=== PATIENT | female | born 1945 | race Caucasian/White ===

== ENCOUNTER 2019-05-22 12:42 | Inpatient (IN) ==
[2019-05-22] MEDS: QUEtiapine Fumarate 25 MG TABLET PO SCH (20:16)
[2019-05-22] MEDS: carvediloL 6.25 MG TABLET PO SCH (20:16)
[2019-05-22] MEDS: Apixaban 5 MG TABLET PO SCH (20:16)
[2019-05-22] MEDS: Magnesium Oxide 400 MG TABLET PO SCH (20:16)
[2019-05-22] MEDS: Nystatin POWDER 30 GM BOTTLE TP SCH (21:47)
[2019-05-22] MEDS: Budesonide/Formoterol 80/4.5 1 PUFF INH IH SCH (22:53)
[2019-05-23] MEDS ORDERED: Furosemide 40 MG TABLET PO SCH (09:00)
[2019-05-23] MEDS ORDERED: Tiotropium 18 MCG inhalation IH SCH (09:00)
[2019-05-23 09:33] LABS: Basophils % 0.2 %; Eosinophils # 0.1 K/mcL (0.0-0.6); Eosinophils % 0.4 %; Hematocrit 27.8 % (35.3-44.9); Hemoglobin 8.2 g/dL (11.5-15.4); Lymphocytes # 1.7 K/mcL (0.6-4.6); Lymphocytes % 10.1 %; Mean Corpuscular HGB Conc 29.5 g/dL (31.6-35.5); Mean Corpuscular Hemoglobin 25.6 pg (28.0-33.3); Mean Corpuscular Volume 86.9 fL (83.0-100.0); Mean Platelet Volume 11.6 fL (9.4-12.4); Monocytes # 1.1 K/mcL (0.0-1.3); Monocytes % 6.9 %; Neutrophils # 12.9 K/mcL (1.6-8.9); Nucleated Red Blood Cells 0.5 /100 WBC (0); Platelet Count 163 K/mcL (140-400); Red Cell Distribution Width 17.6 % (11.5-14.5); Segmented Neutrophils % 78.4 %; White Blood Count 16.5 K/mcL (4.3-11.1)
[2019-05-23 09:53] LABS: BUN/Creatinine Ratio 40 (6-26); Blood Urea Nitrogen 25 mg/dL (8-23); Calcium 8.4 mg/dL (8.6-10.3); Carbon Dioxide 31 mEq/L (23-29); Chloride 101 mEq/L (98-107); Glucose 79 mg/dL (70-105); Osmolality,Calculated 293 (280-300); Potassium 3.5 mEq/L (3.5-5.1); Sodium 140 mEq/L (136-145); eGFR For African Americans > 60 (> 60); eGFR For Non-African Americans > 60 (> 60)
[2019-05-23] MEDS: Budesonide/Formoterol 80/4.5 1 PUFF INH IH SCH ×2 (09:59→23:10)
[2019-05-23] MEDS: Tiotropium 18 MCG inhalation IH SCH (10:01)
[2019-05-23] MEDS: Aspirin 81 MG TAB.CHEW PO SCH (10:14)
[2019-05-23] MEDS: amLODIPine 5 MG TABLET PO SCH (10:14)
[2019-05-23] MEDS: Magnesium Oxide 400 MG TABLET PO SCH ×2 (10:15→19:38)
[2019-05-23] MEDS: Acetaminophen 325 MG TABLET PO PRN ×2 (10:15→19:38)
[2019-05-23] MEDS: Cholecalciferol (D-3) 1,000 UNIT (25MCG) TABLET PO SCH (10:15)
[2019-05-23] MEDS: Vitamin E 200 UNIT (90MG) CAPSULE PO SCH (10:16)
[2019-05-23] MEDS: *HR* Amiodarone 200 MG TABLET PO SCH (10:16)
[2019-05-23] MEDS: Loratadine 10 MG TABLET PO SCH (10:16)
[2019-05-23] MEDS: Multivit/Ca/Min/Fe/FA 1 TAB TABLET PO SCH (10:16)
[2019-05-23] MEDS: FLUoxetine 20 MG CAPSULE PO SCH (10:16)
[2019-05-23] MEDS: carvediloL 6.25 MG TABLET PO SCH ×3 (10:17→17:09)
[2019-05-23] MEDS: Nystatin POWDER 30 GM BOTTLE TP SCH ×2 (10:17→19:39)
[2019-05-23] MEDS: Apixaban 5 MG TABLET PO SCH ×2 (10:17→19:39)
[2019-05-23] MEDS: Furosemide 40 MG TABLET PO SCH (17:09)
[2019-05-23 19:15] LABS: Bilirubin,Urine Negative (Negative); Blood,Urine Trace-intact (Negative); Clarity,Urine Clear (Clear); Color,Urine Yellow (Yellow); Glucose,Urine (UA) Normal (Normal); Ketones,Urine Negative (Negative); Leukocyte Esterase,Urine Trace (Negative); Nitrite,Urine Negative (Negative); Protein,Urine Negative (Neg-Trace); Urobilinogen,Urine Normal (Normal)
[2019-05-23 19:25] LABS: Bacteria,Urine Few per hpf (None-Few); Hyaline Casts,Urine Few per lpf (None-Few); RBC,Urine 0-3 per hpf (0-3); Squamous Epithelial Cell,Urine Few per lpf (None-Few); WBC,Urine 0-3 per hpf (0-3)
[2019-05-23] MEDS: QUEtiapine Fumarate 25 MG TABLET PO SCH (19:38)
[2019-05-24 07:57] LABS: Hematocrit 26.5 % (35.3-44.9); Hemoglobin 7.9 g/dL (11.5-15.4); Mean Corpuscular HGB Conc 29.8 g/dL (31.6-35.5); Mean Corpuscular Hemoglobin 25.5 pg (28.0-33.3); Mean Corpuscular Volume 85.5 fL (83.0-100.0); Mean Platelet Volume 11.3 fL (9.4-12.4); Platelet Count 164 K/mcL (140-400); Red Cell Distribution Width 17.9 % (11.5-14.5); White Blood Count 16.7 K/mcL (4.3-11.1)
[2019-05-24] MEDS: Tiotropium 18 MCG inhalation IH SCH (09:21)
[2019-05-24] MEDS: Budesonide/Formoterol 80/4.5 1 PUFF INH IH SCH ×2 (09:21→21:20)
[2019-05-24] MEDS: Aspirin 81 MG TAB.CHEW PO SCH (10:23)
[2019-05-24] MEDS: Furosemide 40 MG TABLET PO SCH ×2 (10:23→15:45)
[2019-05-24] MEDS: Vitamin E 200 UNIT (90MG) CAPSULE PO SCH (10:23)
[2019-05-24] MEDS: *HR* Amiodarone 200 MG TABLET PO SCH (10:23)
[2019-05-24] MEDS: Cholecalciferol (D-3) 1,000 UNIT (25MCG) TABLET PO SCH (10:23)
[2019-05-24] MEDS: Magnesium Oxide 400 MG TABLET PO SCH ×2 (10:23→19:33)
[2019-05-24] MEDS: Multivit/Ca/Min/Fe/FA 1 TAB TABLET PO SCH (10:23)
[2019-05-24] MEDS: Loratadine 10 MG TABLET PO SCH (10:23)
[2019-05-24] MEDS: amLODIPine 5 MG TABLET PO SCH (10:24)
[2019-05-24] MEDS: carvediloL 6.25 MG TABLET PO SCH ×2 (10:24→15:45)
[2019-05-24] MEDS: Nystatin POWDER 30 GM BOTTLE TP SCH ×2 (10:24→19:33)
[2019-05-24] MEDS: FLUoxetine 20 MG CAPSULE PO SCH (10:24)
[2019-05-24] MEDS: Apixaban 5 MG TABLET PO SCH (10:25)
[2019-05-24] MEDS: Acetaminophen 325 MG TABLET PO PRN (15:44)
[2019-05-24] MEDS: predniSONE 20 MG TABLET PO SCH ×2 (15:45→19:33)
[2019-05-24] MEDS: QUEtiapine Fumarate 25 MG TABLET PO SCH (19:33)
[2019-05-25] MEDS: Vitamin E 200 UNIT (90MG) CAPSULE PO SCH (10:41)
[2019-05-25] MEDS: Aspirin 81 MG TAB.CHEW PO SCH (10:41)
[2019-05-25] MEDS: Magnesium Oxide 400 MG TABLET PO SCH ×2 (10:41→20:23)
[2019-05-25] MEDS: *HR* Amiodarone 200 MG TABLET PO SCH (10:41)
[2019-05-25] MEDS: FLUoxetine 20 MG CAPSULE PO SCH (10:41)
[2019-05-25] MEDS: Loratadine 10 MG TABLET PO SCH (10:41)
[2019-05-25] MEDS: Multivit/Ca/Min/Fe/FA 1 TAB TABLET PO SCH (10:41)
[2019-05-25] MEDS: Furosemide 40 MG TABLET PO SCH ×2 (10:42→17:36)
[2019-05-25] MEDS: amLODIPine 5 MG TABLET PO SCH (10:42)
[2019-05-25] MEDS: predniSONE 20 MG TABLET PO SCH ×3 (10:42→17:37)
[2019-05-25] MEDS: Acetaminophen 325 MG TABLET PO PRN ×2 (10:42→20:23)
[2019-05-25] MEDS: carvediloL 6.25 MG TABLET PO SCH ×2 (10:43→17:36)
[2019-05-25] MEDS: Nystatin POWDER 30 GM BOTTLE TP SCH ×2 (10:43→20:23)
[2019-05-25] MEDS: Cholecalciferol (D-3) 1,000 UNIT (25MCG) TABLET PO SCH (10:44)
[2019-05-25] MEDS: Budesonide/Formoterol 80/4.5 1 PUFF INH IH SCH ×2 (10:44→23:14)
[2019-05-25] MEDS: Tiotropium 18 MCG inhalation IH SCH (10:45)
[2019-05-25] MEDS: QUEtiapine Fumarate 25 MG TABLET PO SCH (20:23)
[2019-05-26] MEDS: Budesonide/Formoterol 80/4.5 1 PUFF INH IH SCH ×2 (08:36→23:06)
[2019-05-26] MEDS: Tiotropium 18 MCG inhalation IH SCH (08:36)
[2019-05-26] MEDS: Multivit/Ca/Min/Fe/FA 1 TAB TABLET PO SCH (08:58)
[2019-05-26] MEDS: carvediloL 6.25 MG TABLET PO SCH ×2 (08:59→16:42)
[2019-05-26] MEDS: amLODIPine 5 MG TABLET PO SCH (08:59)
[2019-05-26] MEDS: predniSONE 20 MG TABLET PO SCH ×2 (08:59→16:42)
[2019-05-26] MEDS: Vitamin E 200 UNIT (90MG) CAPSULE PO SCH (08:59)
[2019-05-26] MEDS: Magnesium Oxide 400 MG TABLET PO SCH ×2 (08:59→21:18)
[2019-05-26] MEDS: Aspirin 81 MG TAB.CHEW PO SCH (09:00)
[2019-05-26] MEDS: Furosemide 40 MG TABLET PO SCH ×2 (09:00→16:42)
[2019-05-26] MEDS: *HR* Amiodarone 200 MG TABLET PO SCH (09:00)
[2019-05-26] MEDS: FLUoxetine 20 MG CAPSULE PO SCH (09:00)
[2019-05-26] MEDS: Cholecalciferol (D-3) 1,000 UNIT (25MCG) TABLET PO SCH (09:01)
[2019-05-26] MEDS: Nystatin POWDER 30 GM BOTTLE TP SCH ×2 (09:01→21:18)
[2019-05-26] MEDS: Loratadine 10 MG TABLET PO SCH (09:06)
[2019-05-26] MEDS: QUEtiapine Fumarate 25 MG TABLET PO SCH (21:18)
[2019-05-27] MEDS: Tiotropium 18 MCG inhalation IH SCH (09:04)
[2019-05-27] MEDS: Budesonide/Formoterol 80/4.5 1 PUFF INH IH SCH ×2 (09:04→21:56)
[2019-05-27] MEDS: Vitamin E 200 UNIT (90MG) CAPSULE PO SCH (09:14)
[2019-05-27] MEDS: Magnesium Oxide 400 MG TABLET PO SCH ×2 (09:15→21:35)
[2019-05-27] MEDS: amLODIPine 5 MG TABLET PO SCH (09:15)
[2019-05-27] MEDS: Acetaminophen 325 MG TABLET PO PRN (09:15)
[2019-05-27] MEDS: *HR* Amiodarone 200 MG TABLET PO SCH (09:15)
[2019-05-27] MEDS: Furosemide 40 MG TABLET PO SCH ×2 (09:15→17:28)
[2019-05-27] MEDS: Multivit/Ca/Min/Fe/FA 1 TAB TABLET PO SCH (09:15)
[2019-05-27] MEDS: predniSONE 20 MG TABLET PO SCH ×2 (09:16→17:29)
[2019-05-27] MEDS: Aspirin 81 MG TAB.CHEW PO SCH (09:16)
[2019-05-27] MEDS: Loratadine 10 MG TABLET PO SCH (09:17)
[2019-05-27] MEDS: carvediloL 6.25 MG TABLET PO SCH ×2 (09:17→17:29)
[2019-05-27] MEDS: FLUoxetine 20 MG CAPSULE PO SCH (09:17)
[2019-05-27] MEDS: Cholecalciferol (D-3) 1,000 UNIT (25MCG) TABLET PO SCH (09:17)
[2019-05-27] MEDS: Nystatin POWDER 30 GM BOTTLE TP SCH ×2 (09:18→21:35)
[2019-05-27] MEDS ORDERED: Bisacodyl 10 MG RECTAL SUPPOSITORY RC ONE (14:05)
[2019-05-27] MEDS: Sennosides/Docusate Sodium TABLET PO SCH ×2 (17:28→21:37)
[2019-05-27] MEDS: QUEtiapine Fumarate 25 MG TABLET PO SCH (21:35)
[2019-05-28 08:26] LABS: Hematocrit 29.8 % (35.3-44.9); Hemoglobin 8.5 g/dL (11.5-15.4); Mean Corpuscular HGB Conc 28.5 g/dL (31.6-35.5); Mean Corpuscular Volume 91.1 fL (83.0-100.0); Mean Platelet Volume 10.2 fL (9.4-12.4); Platelet Count 121 K/mcL (140-400); Red Blood Count 3.27 M/mcL (3.82-4.97); Red Cell Distribution Width 20.4 % (11.5-14.5); White Blood Count 12.5 K/mcL (4.3-11.1)
[2019-05-28 08:42] LABS: BUN/Creatinine Ratio 38 (6-26); Blood Urea Nitrogen 21 mg/dL (8-23); Calcium 8.5 mg/dL (8.6-10.3); Carbon Dioxide 29 mEq/L (23-29); Chloride 100 mEq/L (98-107); Glucose 84 mg/dL (70-105); Osmolality,Calculated 288 (280-300); Potassium 3.9 mEq/L (3.5-5.1); Sodium 138 mEq/L (136-145); eGFR For African Americans > 60 (> 60); eGFR For Non-African Americans > 60 (> 60)
[2019-05-28] MEDS: Multivit/Ca/Min/Fe/FA 1 TAB TABLET PO SCH (09:33)
[2019-05-28] MEDS: predniSONE 20 MG TABLET PO SCH ×2 (09:33→17:24)
[2019-05-28] MEDS: carvediloL 6.25 MG TABLET PO SCH ×2 (09:33→17:24)
[2019-05-28] MEDS: Magnesium Oxide 400 MG TABLET PO SCH ×2 (09:33→20:20)
[2019-05-28] MEDS: Vitamin E 200 UNIT (90MG) CAPSULE PO SCH (09:33)
[2019-05-28] MEDS: Sennosides/Docusate Sodium TABLET PO SCH ×2 (09:33→20:20)
[2019-05-28] MEDS: amLODIPine 5 MG TABLET PO SCH (09:33)
[2019-05-28] MEDS: FLUoxetine 20 MG CAPSULE PO SCH (09:34)
[2019-05-28] MEDS: *HR* Amiodarone 200 MG TABLET PO SCH (09:34)
[2019-05-28] MEDS: Aspirin 81 MG TAB.CHEW PO SCH (09:34)
[2019-05-28] MEDS: Cholecalciferol (D-3) 1,000 UNIT (25MCG) TABLET PO SCH (09:34)
[2019-05-28] MEDS: Furosemide 40 MG TABLET PO SCH ×2 (09:34→17:24)
[2019-05-28] MEDS: Loratadine 10 MG TABLET PO SCH (09:35)
[2019-05-28] MEDS: Tiotropium 18 MCG inhalation IH SCH (11:59)
[2019-05-28] MEDS: Budesonide/Formoterol 80/4.5 1 PUFF INH IH SCH ×2 (12:00→22:41)
[2019-05-28] MEDS: Nystatin POWDER 30 GM BOTTLE TP SCH ×2 (12:36→20:21)
[2019-05-28] MEDS: QUEtiapine Fumarate 25 MG TABLET PO SCH (20:20)
[2019-05-29] MEDS: carvediloL 6.25 MG TABLET PO SCH ×2 (08:19→16:38)
[2019-05-29] MEDS: predniSONE 20 MG TABLET PO SCH ×2 (08:19→16:39)
[2019-05-29] MEDS: Vitamin E 200 UNIT (90MG) CAPSULE PO SCH (08:19)
[2019-05-29] MEDS: Multivit/Ca/Min/Fe/FA 1 TAB TABLET PO SCH (08:19)
[2019-05-29] MEDS: Furosemide 40 MG TABLET PO SCH ×2 (08:19→16:38)
[2019-05-29] MEDS: Aspirin 81 MG TAB.CHEW PO SCH (08:20)
[2019-05-29] MEDS: Magnesium Oxide 400 MG TABLET PO SCH ×2 (08:20→20:09)
[2019-05-29] MEDS: Sennosides/Docusate Sodium TABLET PO SCH ×2 (08:20→20:09)
[2019-05-29] MEDS: FLUoxetine 20 MG CAPSULE PO SCH (08:20)
[2019-05-29] MEDS: Loratadine 10 MG TABLET PO SCH (08:20)
[2019-05-29] MEDS: *HR* Amiodarone 200 MG TABLET PO SCH (08:20)
[2019-05-29] MEDS: amLODIPine 5 MG TABLET PO SCH (08:20)
[2019-05-29] MEDS: Nystatin POWDER 30 GM BOTTLE TP SCH ×2 (08:21→20:09)
[2019-05-29] MEDS: Cholecalciferol (D-3) 1,000 UNIT (25MCG) TABLET PO SCH (08:21)
[2019-05-29] MEDS: Tiotropium 18 MCG inhalation IH SCH (11:45)
[2019-05-29] MEDS: Budesonide/Formoterol 80/4.5 1 PUFF INH IH SCH ×2 (11:46→22:26)
[2019-05-29] MEDS: QUEtiapine Fumarate 25 MG TABLET PO SCH (20:09)
[2019-05-30] MEDS: Acetaminophen 325 MG TABLET PO PRN ×2 (04:54→21:48)
[2019-05-30] MEDS: Cholecalciferol (D-3) 1,000 UNIT (25MCG) TABLET PO SCH (08:22)
[2019-05-30] MEDS: amLODIPine 5 MG TABLET PO SCH (08:22)
[2019-05-30] MEDS: Furosemide 40 MG TABLET PO SCH ×2 (08:24→17:46)
[2019-05-30] MEDS: Vitamin E 200 UNIT (90MG) CAPSULE PO SCH (08:24)
[2019-05-30] MEDS: Sennosides/Docusate Sodium TABLET PO SCH ×2 (08:24→21:48)
[2019-05-30] MEDS: Loratadine 10 MG TABLET PO SCH (08:24)
[2019-05-30] MEDS: Multivit/Ca/Min/Fe/FA 1 TAB TABLET PO SCH (08:24)
[2019-05-30] MEDS: Aspirin 81 MG TAB.CHEW PO SCH (08:24)
[2019-05-30] MEDS: FLUoxetine 20 MG CAPSULE PO SCH (08:25)
[2019-05-30] MEDS: *HR* Amiodarone 200 MG TABLET PO SCH (08:25)
[2019-05-30] MEDS: Magnesium Oxide 400 MG TABLET PO SCH ×2 (08:25→21:48)
[2019-05-30] MEDS: predniSONE 20 MG TABLET PO SCH ×2 (08:25→17:46)
[2019-05-30] MEDS: carvediloL 6.25 MG TABLET PO SCH ×2 (08:25→17:46)
[2019-05-30] MEDS: Budesonide/Formoterol 80/4.5 1 PUFF INH IH SCH ×2 (09:01→22:41)
[2019-05-30] MEDS: Tiotropium 18 MCG inhalation IH SCH (09:01)
[2019-05-30] MEDS: Nystatin POWDER 30 GM BOTTLE TP SCH ×2 (10:07→21:48)
[2019-05-30] MEDS: QUEtiapine Fumarate 25 MG TABLET PO SCH (21:48)
[2019-05-30 22:46] LABS: Bilirubin,Urine Negative (Negative); Blood,Urine Negative (Negative); Glucose,Urine (UA) Normal (Normal); Ketones,Urine Negative (Negative); Leukocyte Esterase,Urine Trace (Negative); Nitrite,Urine Negative (Negative); Protein,Urine Negative (Neg-Trace); Specific Gravity,Urine 1.025 (1.010-1.025); Urobilinogen,Urine Normal (Normal)
[2019-05-30 22:47] LABS: Clarity,Urine Slightly Cloudy (Clear); Color,Urine Straw (Yellow)
[2019-05-30 22:59] LABS: Bacteria,Urine Few per hpf (None-Few); RBC,Urine 0-3 per hpf (0-3); Squamous Epithelial Cell,Urine Few per lpf (None-Few); WBC,Urine 0-3 per hpf (0-3)
[2019-05-31] MEDS: amLODIPine 5 MG TABLET PO SCH (09:16)
[2019-05-31] MEDS: carvediloL 6.25 MG TABLET PO SCH ×2 (09:16→17:07)
[2019-05-31] MEDS: Multivit/Ca/Min/Fe/FA 1 TAB TABLET PO SCH (09:16)
[2019-05-31] MEDS: Sennosides/Docusate Sodium TABLET PO SCH ×2 (09:16→21:55)
[2019-05-31] MEDS: Aspirin 81 MG TAB.CHEW PO SCH (09:16)
[2019-05-31] MEDS: Furosemide 40 MG TABLET PO SCH ×2 (09:17→17:07)
[2019-05-31] MEDS: Loratadine 10 MG TABLET PO SCH (09:17)
[2019-05-31] MEDS: Magnesium Oxide 400 MG TABLET PO SCH ×2 (09:17→21:55)
[2019-05-31] MEDS: predniSONE 20 MG TABLET PO SCH ×2 (09:17→17:08)
[2019-05-31] MEDS: Vitamin E 200 UNIT (90MG) CAPSULE PO SCH (09:17)
[2019-05-31] MEDS: FLUoxetine 20 MG CAPSULE PO SCH (09:17)
[2019-05-31] MEDS: *HR* Amiodarone 200 MG TABLET PO SCH (09:17)
[2019-05-31] MEDS: Cholecalciferol (D-3) 1,000 UNIT (25MCG) TABLET PO SCH (09:18)
[2019-05-31] MEDS: Nystatin POWDER 30 GM BOTTLE TP SCH ×2 (09:18→21:56)
[2019-05-31] MEDS: Budesonide/Formoterol 80/4.5 1 PUFF INH IH SCH ×2 (09:25→23:28)
[2019-05-31] MEDS: Tiotropium 18 MCG inhalation IH SCH (09:25)
[2019-05-31] MEDS: QUEtiapine Fumarate 25 MG TABLET PO SCH (21:55)
[2019-05-31] MEDS: Apixaban 5 MG TABLET PO SCH (21:55)
[2019-06-01] MEDS: Multivit/Ca/Min/Fe/FA 1 TAB TABLET PO SCH (09:24)
[2019-06-01] MEDS: Vitamin E 200 UNIT (90MG) CAPSULE PO SCH (09:24)
[2019-06-01] MEDS: FLUoxetine 20 MG CAPSULE PO SCH (09:24)
[2019-06-01] MEDS: Loratadine 10 MG TABLET PO SCH (09:25)
[2019-06-01] MEDS: predniSONE 20 MG TABLET PO SCH (09:25)
[2019-06-01] MEDS: amLODIPine 5 MG TABLET PO SCH (09:25)
[2019-06-01] MEDS: Furosemide 40 MG TABLET PO SCH ×2 (09:25→16:26)
[2019-06-01] MEDS: Apixaban 5 MG TABLET PO SCH ×2 (09:25→21:28)
[2019-06-01] MEDS: carvediloL 6.25 MG TABLET PO SCH ×2 (09:25→16:26)
[2019-06-01] MEDS: Magnesium Oxide 400 MG TABLET PO SCH ×2 (09:25→21:29)
[2019-06-01] MEDS: Aspirin 81 MG TAB.CHEW PO SCH (09:25)
[2019-06-01] MEDS: Sennosides/Docusate Sodium TABLET PO SCH ×2 (09:25→21:28)
[2019-06-01] MEDS: levoFLOXacin 500 MG TABLET PO SCH (09:25)
[2019-06-01] MEDS: *HR* Amiodarone 200 MG TABLET PO SCH (09:25)
[2019-06-01] MEDS: Nystatin POWDER 30 GM BOTTLE TP SCH ×2 (09:26→21:29)
[2019-06-01] MEDS: Cholecalciferol (D-3) 1,000 UNIT (25MCG) TABLET PO SCH (09:26)
[2019-06-01] MEDS: Tiotropium 18 MCG inhalation IH SCH (10:44)
[2019-06-01] MEDS: Budesonide/Formoterol 80/4.5 1 PUFF INH IH SCH ×2 (10:45→21:03)
[2019-06-01] MEDS: predniSONE 10 MG TABLET PO SCH (16:26)
[2019-06-01] MEDS: QUEtiapine Fumarate 25 MG TABLET PO SCH (21:28)
[2019-06-02 06:56] LABS: Hematocrit 30.9 % (35.3-44.9); Hemoglobin 9.1 g/dL (11.5-15.4); Mean Corpuscular HGB Conc 29.4 g/dL (31.6-35.5); Mean Corpuscular Hemoglobin 25.4 pg (28.0-33.3); Mean Corpuscular Volume 86.3 fL (83.0-100.0); Mean Platelet Volume 9.4 fL (9.4-12.4); Platelet Count 159 K/mcL (140-400); Red Blood Count 3.58 M/mcL (3.82-4.97); Red Cell Distribution Width 20.7 % (11.5-14.5); White Blood Count 11.1 K/mcL (4.3-11.1)
[2019-06-02 07:12] LABS: BUN/Creatinine Ratio 34 (6-26); Blood Urea Nitrogen 23 mg/dL (8-23); Calcium 8.7 mg/dL (8.6-10.3); Carbon Dioxide 36 mEq/L (23-29); Chloride 99 mEq/L (98-107); Glucose 88 mg/dL (70-105); Osmolality,Calculated 297 (280-300); Potassium 3.4 mEq/L (3.5-5.1); Sodium 142 mEq/L (136-145); eGFR For African Americans > 60 (> 60); eGFR For Non-African Americans > 60 (> 60)
[2019-06-02] MEDS: FLUoxetine 20 MG CAPSULE PO SCH (09:10)
[2019-06-02] MEDS: Multivit/Ca/Min/Fe/FA 1 TAB TABLET PO SCH (09:10)
[2019-06-02] MEDS: Vitamin E 200 UNIT (90MG) CAPSULE PO SCH (09:10)
[2019-06-02] MEDS: Apixaban 5 MG TABLET PO SCH ×2 (09:10→20:52)
[2019-06-02] MEDS: Magnesium Oxide 400 MG TABLET PO SCH ×2 (09:10→20:52)
[2019-06-02] MEDS: amLODIPine 5 MG TABLET PO SCH (09:10)
[2019-06-02] MEDS: *HR* Amiodarone 200 MG TABLET PO SCH (09:11)
[2019-06-02] MEDS: predniSONE 10 MG TABLET PO SCH ×2 (09:11→16:35)
[2019-06-02] MEDS: Loratadine 10 MG TABLET PO SCH (09:11)
[2019-06-02] MEDS: Aspirin 81 MG TAB.CHEW PO SCH (09:11)
[2019-06-02] MEDS: carvediloL 6.25 MG TABLET PO SCH ×2 (09:11→16:35)
[2019-06-02] MEDS: Sennosides/Docusate Sodium TABLET PO SCH ×3 (09:11→20:52)
[2019-06-02] MEDS: Furosemide 40 MG TABLET PO SCH ×2 (09:11→16:35)
[2019-06-02] MEDS: levoFLOXacin 500 MG TABLET PO SCH (09:11)
[2019-06-02] MEDS: Nystatin POWDER 30 GM BOTTLE TP SCH ×2 (09:12→20:52)
[2019-06-02] MEDS: Cholecalciferol (D-3) 1,000 UNIT (25MCG) TABLET PO SCH (09:12)
[2019-06-02] MEDS: Tiotropium 18 MCG inhalation IH SCH (11:21)
[2019-06-02] MEDS: Budesonide/Formoterol 80/4.5 1 PUFF INH IH SCH ×2 (11:22→21:53)
[2019-06-02] MEDS: QUEtiapine Fumarate 25 MG TABLET PO SCH (20:52)
[2019-06-03] MEDS: FLUoxetine 20 MG CAPSULE PO SCH (09:40)
[2019-06-03] MEDS: Loratadine 10 MG TABLET PO SCH (09:41)
[2019-06-03] MEDS: amLODIPine 5 MG TABLET PO SCH (09:41)
[2019-06-03] MEDS: Magnesium Oxide 400 MG TABLET PO SCH ×2 (09:41→19:48)
[2019-06-03] MEDS: Cholecalciferol (D-3) 1,000 UNIT (25MCG) TABLET PO SCH (09:42)
[2019-06-03] MEDS: Apixaban 5 MG TABLET PO SCH ×2 (09:42→19:48)
[2019-06-03] MEDS: predniSONE 10 MG TABLET PO SCH (09:43)
[2019-06-03] MEDS: Furosemide 40 MG TABLET PO SCH ×2 (09:43→17:35)
[2019-06-03] MEDS: carvediloL 6.25 MG TABLET PO SCH ×2 (09:43→17:35)
[2019-06-03] MEDS: Aspirin 81 MG TAB.CHEW PO SCH (09:43)
[2019-06-03] MEDS: Multivit/Ca/Min/Fe/FA 1 TAB TABLET PO SCH (09:43)
[2019-06-03] MEDS: Sennosides/Docusate Sodium TABLET PO SCH ×2 (09:43→19:49)
[2019-06-03] MEDS: levoFLOXacin 500 MG TABLET PO SCH (09:43)
[2019-06-03] MEDS: Vitamin E 200 UNIT (90MG) CAPSULE PO SCH (09:44)
[2019-06-03] MEDS: *HR* Amiodarone 200 MG TABLET PO SCH (09:44)
[2019-06-03] MEDS: Nystatin POWDER 30 GM BOTTLE TP SCH ×2 (09:45→19:48)
[2019-06-03] MEDS: Tiotropium 18 MCG inhalation IH SCH (10:38)
[2019-06-03] MEDS: Budesonide/Formoterol 80/4.5 1 PUFF INH IH SCH ×2 (10:39→20:47)
[2019-06-03] MEDS: QUEtiapine Fumarate 25 MG TABLET PO SCH (19:48)
[2019-06-04] MEDS: Vitamin E 200 UNIT (90MG) CAPSULE PO SCH (09:06)
[2019-06-04] MEDS: Multivit/Ca/Min/Fe/FA 1 TAB TABLET PO SCH (09:06)
[2019-06-04] MEDS: *HR* Amiodarone 200 MG TABLET PO SCH (09:07)
[2019-06-04] MEDS: amLODIPine 5 MG TABLET PO SCH (09:07)
[2019-06-04] MEDS: Sennosides/Docusate Sodium TABLET PO SCH ×2 (09:07→21:24)
[2019-06-04] MEDS: levoFLOXacin 500 MG TABLET PO SCH (09:07)
[2019-06-04] MEDS: Aspirin 81 MG TAB.CHEW PO SCH (09:08)
[2019-06-04] MEDS: Cholecalciferol (D-3) 1,000 UNIT (25MCG) TABLET PO SCH (09:08)
[2019-06-04] MEDS: Furosemide 40 MG TABLET PO SCH ×2 (09:08→17:09)
[2019-06-04] MEDS: carvediloL 6.25 MG TABLET PO SCH ×2 (09:08→17:09)
[2019-06-04] MEDS: Magnesium Oxide 400 MG TABLET PO SCH ×2 (09:08→21:24)
[2019-06-04] MEDS: Apixaban 5 MG TABLET PO SCH ×2 (09:08→21:24)
[2019-06-04] MEDS: Loratadine 10 MG TABLET PO SCH (09:08)
[2019-06-04] MEDS: FLUoxetine 20 MG CAPSULE PO SCH (09:09)
[2019-06-04] MEDS: predniSONE 10 MG TABLET PO SCH (09:09)
[2019-06-04] MEDS: Nystatin POWDER 30 GM BOTTLE TP SCH ×2 (09:34→21:25)
[2019-06-04] MEDS: Tiotropium 18 MCG inhalation IH SCH (09:55)
[2019-06-04] MEDS: Budesonide/Formoterol 80/4.5 1 PUFF INH IH SCH ×2 (09:56→22:28)
[2019-06-04] MEDS: QUEtiapine Fumarate 25 MG TABLET PO SCH (21:24)
[2019-06-05] MEDS: carvediloL 6.25 MG TABLET PO SCH ×2 (09:04→16:47)
[2019-06-05] MEDS: Magnesium Oxide 400 MG TABLET PO SCH ×2 (09:04→21:42)
[2019-06-05] MEDS: Aspirin 81 MG TAB.CHEW PO SCH (09:04)
[2019-06-05] MEDS: Apixaban 5 MG TABLET PO SCH ×2 (09:04→21:42)
[2019-06-05] MEDS: Loratadine 10 MG TABLET PO SCH (09:05)
[2019-06-05] MEDS: *HR* Amiodarone 200 MG TABLET PO SCH (09:05)
[2019-06-05] MEDS: levoFLOXacin 500 MG TABLET PO SCH (09:05)
[2019-06-05] MEDS: FLUoxetine 20 MG CAPSULE PO SCH (09:06)
[2019-06-05] MEDS: predniSONE 10 MG TABLET PO SCH (09:06)
[2019-06-05] MEDS: Sennosides/Docusate Sodium TABLET PO SCH ×2 (09:06→21:42)
[2019-06-05] MEDS: Furosemide 40 MG TABLET PO SCH ×2 (09:06→16:47)
[2019-06-05] MEDS: amLODIPine 5 MG TABLET PO SCH (09:06)
[2019-06-05] MEDS: Vitamin E 200 UNIT (90MG) CAPSULE PO SCH (09:07)
[2019-06-05] MEDS: Cholecalciferol (D-3) 1,000 UNIT (25MCG) TABLET PO SCH (09:07)
[2019-06-05] MEDS: Multivit/Ca/Min/Fe/FA 1 TAB TABLET PO SCH (09:07)
[2019-06-05] MEDS: Nystatin POWDER 30 GM BOTTLE TP SCH ×2 (09:08→21:42)
[2019-06-05] MEDS: Tiotropium 18 MCG inhalation IH SCH (09:40)
[2019-06-05] MEDS: Budesonide/Formoterol 80/4.5 1 PUFF INH IH SCH ×2 (09:40→22:28)
[2019-06-05] MEDS: QUEtiapine Fumarate 25 MG TABLET PO SCH (21:42)
[2019-06-05 22:30] LABS: Bilirubin,Urine Negative (Negative); Blood,Urine Trace-intact (Negative); Clarity,Urine Clear (Clear); Glucose,Urine (UA) Normal (Normal); Ketones,Urine Negative (Negative); Leukocyte Esterase,Urine Moderate (Negative); Nitrite,Urine Negative (Negative); PH,Urine 7.5 pH Units (5.0-8.0); Protein,Urine Negative (Neg-Trace); Urobilinogen,Urine Normal (Normal)
[2019-06-05 22:31] LABS: Color,Urine Light Yellow (Yellow)
[2019-06-05 23:08] LABS: RBC,Urine 0-3 per hpf (0-3); Squamous Epithelial Cell,Urine Few per lpf (None-Few)
[2019-06-05 23:09] LABS: Bacteria,Urine Few per hpf (None-Few)
[2019-06-06] MEDS: Budesonide/Formoterol 80/4.5 1 PUFF INH IH SCH ×2 (10:12→22:06)
[2019-06-06] MEDS: Tiotropium 18 MCG inhalation IH SCH (10:12)
[2019-06-06] MEDS: *HR* Amiodarone 200 MG TABLET PO SCH (11:10)
[2019-06-06] MEDS: Furosemide 40 MG TABLET PO SCH ×2 (11:10→16:26)
[2019-06-06] MEDS: amLODIPine 5 MG TABLET PO SCH (11:10)
[2019-06-06] MEDS: Loratadine 10 MG TABLET PO SCH (11:10)
[2019-06-06] MEDS: carvediloL 6.25 MG TABLET PO SCH ×2 (11:11→16:25)
[2019-06-06] MEDS: Aspirin 81 MG TAB.CHEW PO SCH (11:12)
[2019-06-06] MEDS: Apixaban 5 MG TABLET PO SCH ×2 (11:13→20:18)
[2019-06-06] MEDS: Magnesium Oxide 400 MG TABLET PO SCH ×2 (11:13→20:18)
[2019-06-06] MEDS: predniSONE 10 MG TABLET PO SCH (11:14)
[2019-06-06] MEDS: Multivit/Ca/Min/Fe/FA 1 TAB TABLET PO SCH (11:14)
[2019-06-06] MEDS: FLUoxetine 20 MG CAPSULE PO SCH (11:14)
[2019-06-06] MEDS: Vitamin E 200 UNIT (90MG) CAPSULE PO SCH (11:15)
[2019-06-06] MEDS: Cholecalciferol (D-3) 1,000 UNIT (25MCG) TABLET PO SCH (11:15)
[2019-06-06] MEDS: Sennosides/Docusate Sodium TABLET PO SCH ×2 (11:15→20:17)
[2019-06-06] MEDS: Nystatin POWDER 30 GM BOTTLE TP SCH ×2 (11:22→20:19)
[2019-06-06] MEDS: QUEtiapine Fumarate 25 MG TABLET PO SCH (20:18)
[2019-06-07] MEDS: Apixaban 5 MG TABLET PO SCH ×2 (08:53→19:58)
[2019-06-07] MEDS: carvediloL 6.25 MG TABLET PO SCH ×2 (08:54→17:01)
[2019-06-07] MEDS: Vitamin E 200 UNIT (90MG) CAPSULE PO SCH (08:54)
[2019-06-07] MEDS: Multivit/Ca/Min/Fe/FA 1 TAB TABLET PO SCH (08:54)
[2019-06-07] MEDS: FLUoxetine 20 MG CAPSULE PO SCH (08:54)
[2019-06-07] MEDS: Sennosides/Docusate Sodium TABLET PO SCH ×2 (08:54→19:58)
[2019-06-07] MEDS: *HR* Amiodarone 200 MG TABLET PO SCH (08:54)
[2019-06-07] MEDS: Loratadine 10 MG TABLET PO SCH (08:54)
[2019-06-07] MEDS: Aspirin 81 MG TAB.CHEW PO SCH (08:54)
[2019-06-07] MEDS: amLODIPine 5 MG TABLET PO SCH (08:54)
[2019-06-07] MEDS: Furosemide 40 MG TABLET PO SCH ×2 (08:55→17:01)
[2019-06-07] MEDS: Nystatin POWDER 30 GM BOTTLE TP SCH ×2 (08:55→20:01)
[2019-06-07] MEDS: Magnesium Oxide 400 MG TABLET PO SCH ×2 (08:55→19:59)
[2019-06-07] MEDS: predniSONE 10 MG TABLET PO SCH (08:55)
[2019-06-07] MEDS: Cholecalciferol (D-3) 1,000 UNIT (25MCG) TABLET PO SCH (08:55)
[2019-06-07] MEDS: Budesonide/Formoterol 80/4.5 1 PUFF INH IH SCH ×2 (10:42→21:30)
[2019-06-07] MEDS: Tiotropium 18 MCG inhalation IH SCH (10:43)
[2019-06-07] MEDS: QUEtiapine Fumarate 25 MG TABLET PO SCH (19:58)
[2019-06-08] MEDS: amLODIPine 5 MG TABLET PO SCH (08:17)
[2019-06-08] MEDS: Magnesium Oxide 400 MG TABLET PO SCH ×2 (08:17→20:19)
[2019-06-08] MEDS: Apixaban 5 MG TABLET PO SCH ×2 (08:17→20:19)
[2019-06-08] MEDS: Cholecalciferol (D-3) 1,000 UNIT (25MCG) TABLET PO SCH (08:17)
[2019-06-08] MEDS: FLUoxetine 20 MG CAPSULE PO SCH (08:17)
[2019-06-08] MEDS: Multivit/Ca/Min/Fe/FA 1 TAB TABLET PO SCH (08:17)
[2019-06-08] MEDS: Loratadine 10 MG TABLET PO SCH (08:17)
[2019-06-08] MEDS: predniSONE 10 MG TABLET PO SCH (08:17)
[2019-06-08] MEDS: Furosemide 40 MG TABLET PO SCH (08:17)
[2019-06-08] MEDS: Vitamin E 200 UNIT (90MG) CAPSULE PO SCH (08:17)
[2019-06-08] MEDS: Nystatin POWDER 30 GM BOTTLE TP SCH ×2 (08:18→20:19)
[2019-06-08] MEDS: carvediloL 6.25 MG TABLET PO SCH ×2 (08:18→16:29)
[2019-06-08] MEDS: Sennosides/Docusate Sodium TABLET PO SCH ×2 (08:18→20:20)
[2019-06-08] MEDS: *HR* Amiodarone 200 MG TABLET PO SCH (08:18)
[2019-06-08] MEDS: Aspirin 81 MG TAB.CHEW PO SCH (08:18)
[2019-06-08] MEDS: Tiotropium 18 MCG inhalation IH SCH (10:07)
[2019-06-08] MEDS: Budesonide/Formoterol 80/4.5 1 PUFF INH IH SCH ×2 (10:07→23:10)
[2019-06-08] MEDS: cephALEXin 500 MG CAPSULE PO SCH ×2 (16:29→20:19)
[2019-06-08] MEDS: QUEtiapine Fumarate 25 MG TABLET PO SCH (20:19)
[2019-06-09] MEDS: Aspirin 81 MG TAB.CHEW PO SCH (08:43)
[2019-06-09] MEDS: *HR* Amiodarone 200 MG TABLET PO SCH (08:43)
[2019-06-09] MEDS: Magnesium Oxide 400 MG TABLET PO SCH ×2 (08:43→20:34)
[2019-06-09] MEDS: amLODIPine 5 MG TABLET PO SCH (08:43)
[2019-06-09] MEDS: Furosemide 40 MG TABLET PO SCH (08:43)
[2019-06-09] MEDS: Vitamin E 200 UNIT (90MG) CAPSULE PO SCH (08:43)
[2019-06-09] MEDS: Multivit/Ca/Min/Fe/FA 1 TAB TABLET PO SCH (08:43)
[2019-06-09] MEDS: Sennosides/Docusate Sodium TABLET PO SCH ×2 (08:44→20:34)
[2019-06-09] MEDS: carvediloL 6.25 MG TABLET PO SCH ×2 (08:44→16:09)
[2019-06-09] MEDS: Nystatin POWDER 30 GM BOTTLE TP SCH ×2 (08:44→20:34)
[2019-06-09] MEDS: predniSONE 5 MG TABLET PO SCH (08:44)
[2019-06-09] MEDS: FLUoxetine 20 MG CAPSULE PO SCH (08:44)
[2019-06-09] MEDS: Cholecalciferol (D-3) 1,000 UNIT (25MCG) TABLET PO SCH (08:44)
[2019-06-09] MEDS: Loratadine 10 MG TABLET PO SCH (08:44)
[2019-06-09] MEDS: Apixaban 5 MG TABLET PO SCH ×2 (08:44→20:34)
[2019-06-09] MEDS: cephALEXin 500 MG CAPSULE PO SCH ×3 (08:44→20:34)
[2019-06-09] MEDS: Tiotropium 18 MCG inhalation IH SCH (09:33)
[2019-06-09] MEDS: Budesonide/Formoterol 80/4.5 1 PUFF INH IH SCH ×2 (09:34→22:08)
[2019-06-09] MEDS: QUEtiapine Fumarate 25 MG TABLET PO SCH (20:34)
[2019-06-10] MEDS: Apixaban 5 MG TABLET PO SCH ×2 (08:36→20:26)
[2019-06-10] MEDS: predniSONE 5 MG TABLET PO SCH (08:37)
[2019-06-10] MEDS: *HR* Amiodarone 200 MG TABLET PO SCH (08:37)
[2019-06-10] MEDS: Magnesium Oxide 400 MG TABLET PO SCH ×2 (08:37→20:26)
[2019-06-10] MEDS: Furosemide 40 MG TABLET PO SCH (08:37)
[2019-06-10] MEDS: Sennosides/Docusate Sodium TABLET PO SCH ×2 (08:37→20:26)
[2019-06-10] MEDS: cephALEXin 500 MG CAPSULE PO SCH ×3 (08:37→20:26)
[2019-06-10] MEDS: FLUoxetine 20 MG CAPSULE PO SCH (08:37)
[2019-06-10] MEDS: Multivit/Ca/Min/Fe/FA 1 TAB TABLET PO SCH (08:37)
[2019-06-10] MEDS: Cholecalciferol (D-3) 1,000 UNIT (25MCG) TABLET PO SCH (08:37)
[2019-06-10] MEDS: carvediloL 6.25 MG TABLET PO SCH ×2 (08:37→17:36)
[2019-06-10] MEDS: Vitamin E 200 UNIT (90MG) CAPSULE PO SCH (08:37)
[2019-06-10] MEDS: amLODIPine 5 MG TABLET PO SCH (08:38)
[2019-06-10] MEDS: Nystatin POWDER 30 GM BOTTLE TP SCH ×2 (08:38→20:26)
[2019-06-10] MEDS: Loratadine 10 MG TABLET PO SCH (08:38)
[2019-06-10] MEDS: Aspirin 81 MG TAB.CHEW PO SCH (08:38)
[2019-06-10] MEDS: Tiotropium 18 MCG inhalation IH SCH (09:58)
[2019-06-10] MEDS: Budesonide/Formoterol 80/4.5 1 PUFF INH IH SCH ×2 (09:59→22:36)
[2019-06-10] MEDS: QUEtiapine Fumarate 25 MG TABLET PO SCH (20:26)
[2019-06-11 06:24] LABS: Hematocrit 31.9 % (35.3-44.9); Hemoglobin 9.5 g/dL (11.5-15.4); Mean Corpuscular HGB Conc 29.8 g/dL (31.6-35.5); Mean Corpuscular Hemoglobin 26.2 pg (28.0-33.3); Mean Corpuscular Volume 88.1 fL (83.0-100.0); Platelet Count 313 K/mcL (140-400); Red Blood Count 3.62 M/mcL (3.82-4.97); Red Cell Distribution Width 20.4 % (11.5-14.5)
[2019-06-11 06:46] LABS: BUN/Creatinine Ratio 35 (6-26); Blood Urea Nitrogen 23 mg/dL (8-23); Calcium 8.5 mg/dL (8.6-10.3); Carbon Dioxide 34 mEq/L (23-29); Chloride 100 mEq/L (98-107); Glucose 84 mg/dL (70-105); Osmolality,Calculated 291 (280-300); Potassium 3.7 mEq/L (3.5-5.1); Sodium 139 mEq/L (136-145); eGFR For African Americans > 60 (> 60); eGFR For Non-African Americans > 60 (> 60)
[2019-06-11] MEDS: cephALEXin 500 MG CAPSULE PO SCH ×3 (09:20→20:52)
[2019-06-11] MEDS: Sennosides/Docusate Sodium TABLET PO SCH ×2 (09:21→20:53)
[2019-06-11] MEDS: FLUoxetine 20 MG CAPSULE PO SCH (09:21)
[2019-06-11] MEDS: Apixaban 5 MG TABLET PO SCH ×2 (09:21→20:53)
[2019-06-11] MEDS: Magnesium Oxide 400 MG TABLET PO SCH ×2 (09:21→20:52)
[2019-06-11] MEDS: amLODIPine 5 MG TABLET PO SCH (09:21)
[2019-06-11] MEDS: predniSONE 5 MG TABLET PO SCH (09:22)
[2019-06-11] MEDS: Furosemide 40 MG TABLET PO SCH (09:22)
[2019-06-11] MEDS: Aspirin 81 MG TAB.CHEW PO SCH (09:22)
[2019-06-11] MEDS: carvediloL 6.25 MG TABLET PO SCH ×2 (09:23→16:55)
[2019-06-11] MEDS: Multivit/Ca/Min/Fe/FA 1 TAB TABLET PO SCH (09:23)
[2019-06-11] MEDS: Vitamin E 200 UNIT (90MG) CAPSULE PO SCH (09:23)
[2019-06-11] MEDS: Loratadine 10 MG TABLET PO SCH (09:23)
[2019-06-11] MEDS: *HR* Amiodarone 200 MG TABLET PO SCH (09:23)
[2019-06-11] MEDS: Cholecalciferol (D-3) 1,000 UNIT (25MCG) TABLET PO SCH (09:24)
[2019-06-11] MEDS: Nystatin POWDER 30 GM BOTTLE TP SCH ×2 (09:30→20:53)
[2019-06-11] MEDS: Tiotropium 18 MCG inhalation IH SCH (11:02)
[2019-06-11] MEDS: Budesonide/Formoterol 80/4.5 1 PUFF INH IH SCH ×2 (11:02→22:41)
[2019-06-11] MEDS: QUEtiapine Fumarate 25 MG TABLET PO SCH (20:52)
[2019-06-12] MEDS: Apixaban 5 MG TABLET PO SCH ×2 (09:17→21:13)
[2019-06-12] MEDS: predniSONE 5 MG TABLET PO SCH (09:17)
[2019-06-12] MEDS: Vitamin E 200 UNIT (90MG) CAPSULE PO SCH (09:17)
[2019-06-12] MEDS: Aspirin 81 MG TAB.CHEW PO SCH (09:17)
[2019-06-12] MEDS: *HR* Amiodarone 200 MG TABLET PO SCH (09:17)
[2019-06-12] MEDS: FLUoxetine 20 MG CAPSULE PO SCH (09:18)
[2019-06-12] MEDS: Sennosides/Docusate Sodium TABLET PO SCH ×2 (09:18→21:12)
[2019-06-12] MEDS: Cholecalciferol (D-3) 1,000 UNIT (25MCG) TABLET PO SCH (09:18)
[2019-06-12] MEDS: Multivit/Ca/Min/Fe/FA 1 TAB TABLET PO SCH (09:18)
[2019-06-12] MEDS: amLODIPine 5 MG TABLET PO SCH (09:18)
[2019-06-12] MEDS: Magnesium Oxide 400 MG TABLET PO SCH ×2 (09:18→21:12)
[2019-06-12] MEDS: carvediloL 6.25 MG TABLET PO SCH ×2 (09:18→17:01)
[2019-06-12] MEDS: Furosemide 40 MG TABLET PO SCH (09:18)
[2019-06-12] MEDS: cephALEXin 500 MG CAPSULE PO SCH ×3 (09:22→21:12)
[2019-06-12] MEDS: Nystatin POWDER 30 GM BOTTLE TP SCH (09:23)
[2019-06-12] MEDS: Loratadine 10 MG TABLET PO SCH (09:23)
[2019-06-12] MEDS: Tiotropium 18 MCG inhalation IH SCH (10:28)
[2019-06-12] MEDS: Budesonide/Formoterol 80/4.5 1 PUFF INH IH SCH ×2 (10:29→21:58)
[2019-06-12] MEDS: QUEtiapine Fumarate 25 MG TABLET PO SCH (21:12)
[2019-06-13] MEDS: Nystatin POWDER 30 GM BOTTLE TP SCH ×3 (05:35→21:28)
[2019-06-13] MEDS: Tiotropium 18 MCG inhalation IH SCH (09:05)
[2019-06-13] MEDS: Budesonide/Formoterol 80/4.5 1 PUFF INH IH SCH ×2 (09:05→22:21)
[2019-06-13] MEDS: Loratadine 10 MG TABLET PO SCH (10:05)
[2019-06-13] MEDS: carvediloL 6.25 MG TABLET PO SCH ×2 (10:05→17:40)
[2019-06-13] MEDS: Vitamin E 200 UNIT (90MG) CAPSULE PO SCH (10:05)
[2019-06-13] MEDS: cephALEXin 500 MG CAPSULE PO SCH ×2 (10:05→17:40)
[2019-06-13] MEDS: Furosemide 40 MG TABLET PO SCH (10:05)
[2019-06-13] MEDS: Magnesium Oxide 400 MG TABLET PO SCH ×2 (10:05→21:28)
[2019-06-13] MEDS: Multivit/Ca/Min/Fe/FA 1 TAB TABLET PO SCH (10:05)
[2019-06-13] MEDS: Sennosides/Docusate Sodium TABLET PO SCH ×2 (10:05→21:28)
[2019-06-13] MEDS: Apixaban 5 MG TABLET PO SCH ×2 (10:05→21:28)
[2019-06-13] MEDS: Aspirin 81 MG TAB.CHEW PO SCH (10:05)
[2019-06-13] MEDS: Cholecalciferol (D-3) 1,000 UNIT (25MCG) TABLET PO SCH (10:05)
[2019-06-13] MEDS: FLUoxetine 20 MG CAPSULE PO SCH (10:05)
[2019-06-13] MEDS: amLODIPine 5 MG TABLET PO SCH (10:05)
[2019-06-13] MEDS: *HR* Amiodarone 200 MG TABLET PO SCH (10:05)
[2019-06-13] MEDS ORDERED: cephALEXin 500 MG CAPSULE PO ONE (17:45)
[2019-06-13] MEDS: QUEtiapine Fumarate 25 MG TABLET PO SCH (21:28)
[2019-06-14] MEDS: Magnesium Oxide 400 MG TABLET PO SCH ×2 (09:22→21:28)
[2019-06-14] MEDS: FLUoxetine 20 MG CAPSULE PO SCH (09:22)
[2019-06-14] MEDS: amLODIPine 5 MG TABLET PO SCH (09:22)
[2019-06-14] MEDS: Vitamin E 200 UNIT (90MG) CAPSULE PO SCH (09:22)
[2019-06-14] MEDS: Sennosides/Docusate Sodium TABLET PO SCH ×2 (09:22→21:29)
[2019-06-14] MEDS: Apixaban 5 MG TABLET PO SCH ×2 (09:23→21:29)
[2019-06-14] MEDS: Cholecalciferol (D-3) 1,000 UNIT (25MCG) TABLET PO SCH (09:23)
[2019-06-14] MEDS: Furosemide 40 MG TABLET PO SCH (09:23)
[2019-06-14] MEDS: Nystatin POWDER 30 GM BOTTLE TP SCH ×2 (09:23→21:34)
[2019-06-14] MEDS: Aspirin 81 MG TAB.CHEW PO SCH (09:23)
[2019-06-14] MEDS: carvediloL 6.25 MG TABLET PO SCH ×2 (09:23→17:28)
[2019-06-14] MEDS: *HR* Amiodarone 200 MG TABLET PO SCH (09:23)
[2019-06-14] MEDS: Loratadine 10 MG TABLET PO SCH (09:23)
[2019-06-14] MEDS: Multivit/Ca/Min/Fe/FA 1 TAB TABLET PO SCH (09:24)
[2019-06-14] MEDS: Tiotropium 18 MCG inhalation IH SCH (09:56)
[2019-06-14] MEDS: Budesonide/Formoterol 80/4.5 1 PUFF INH IH SCH ×2 (09:57→22:18)
[2019-06-14] MEDS: Fluconazole 100 MG TABLET PO SCH (17:28)
[2019-06-14] MEDS: QUEtiapine Fumarate 25 MG TABLET PO SCH (21:29)
[2019-06-15 08:06] LABS: Hemoglobin 10.6 g/dL (11.5-15.4); Mean Corpuscular HGB Conc 29.4 g/dL (31.6-35.5); Mean Corpuscular Hemoglobin 25.9 pg (28.0-33.3); Mean Platelet Volume 9.9 fL (9.4-12.4); Platelet Count 280 K/mcL (140-400); Red Blood Count 4.09 M/mcL (3.82-4.97); Red Cell Distribution Width 19.5 % (11.5-14.5); White Blood Count 5.6 K/mcL (4.3-11.1)
[2019-06-15] MEDS: *HR* Amiodarone 200 MG TABLET PO SCH (08:21)
[2019-06-15] MEDS: amLODIPine 5 MG TABLET PO SCH (08:21)
[2019-06-15] MEDS: Sennosides/Docusate Sodium TABLET PO SCH ×2 (08:21→21:07)
[2019-06-15] MEDS: carvediloL 6.25 MG TABLET PO SCH ×2 (08:22→16:18)
[2019-06-15] MEDS: Apixaban 5 MG TABLET PO SCH ×2 (08:22→21:07)
[2019-06-15] MEDS: Magnesium Oxide 400 MG TABLET PO SCH ×2 (08:22→21:07)
[2019-06-15] MEDS: Loratadine 10 MG TABLET PO SCH (08:22)
[2019-06-15] MEDS: Aspirin 81 MG TAB.CHEW PO SCH (08:22)
[2019-06-15] MEDS: Fluconazole 100 MG TABLET PO SCH (08:22)
[2019-06-15] MEDS: Cholecalciferol (D-3) 1,000 UNIT (25MCG) TABLET PO SCH (08:22)
[2019-06-15] MEDS: FLUoxetine 20 MG CAPSULE PO SCH (08:22)
[2019-06-15] MEDS: Vitamin E 200 UNIT (90MG) CAPSULE PO SCH (08:22)
[2019-06-15] MEDS: Multivit/Ca/Min/Fe/FA 1 TAB TABLET PO SCH (08:22)
[2019-06-15] MEDS: Furosemide 40 MG TABLET PO SCH (08:22)
[2019-06-15] MEDS: Nystatin POWDER 30 GM BOTTLE TP SCH ×2 (08:26→21:08)
[2019-06-15 08:28] LABS: BUN/Creatinine Ratio 29 (6-26); Blood Urea Nitrogen 18 mg/dL (8-23); Calcium 8.8 mg/dL (8.6-10.3); Carbon Dioxide 34 mEq/L (23-29); Chloride 102 mEq/L (98-107); Glucose 95 mg/dL (70-105); Osmolality,Calculated 296 (280-300); Potassium 3.9 mEq/L (3.5-5.1); Sodium 142 mEq/L (136-145); eGFR For African Americans > 60 (> 60); eGFR For Non-African Americans > 60 (> 60)
[2019-06-15] MEDS: Budesonide/Formoterol 80/4.5 1 PUFF INH IH SCH ×2 (09:57→22:13)
[2019-06-15] MEDS: Tiotropium 18 MCG inhalation IH SCH (09:58)
[2019-06-15] MEDS: QUEtiapine Fumarate 25 MG TABLET PO SCH (21:07)
[2019-06-16] MEDS: Acetaminophen 325 MG TABLET PO PRN (00:44)
[2019-06-16] MEDS: Multivit/Ca/Min/Fe/FA 1 TAB TABLET PO SCH (08:38)
[2019-06-16] MEDS: Fluconazole 100 MG TABLET PO SCH (08:38)
[2019-06-16] MEDS: Apixaban 5 MG TABLET PO SCH ×2 (08:38→20:49)
[2019-06-16] MEDS: Loratadine 10 MG TABLET PO SCH (08:38)
[2019-06-16] MEDS: FLUoxetine 20 MG CAPSULE PO SCH (08:38)
[2019-06-16] MEDS: Vitamin E 200 UNIT (90MG) CAPSULE PO SCH (08:38)
[2019-06-16] MEDS: *HR* Amiodarone 200 MG TABLET PO SCH (08:39)
[2019-06-16] MEDS: Nystatin POWDER 30 GM BOTTLE TP SCH ×2 (08:39→20:49)
[2019-06-16] MEDS: Magnesium Oxide 400 MG TABLET PO SCH ×2 (08:39→20:49)
[2019-06-16] MEDS: Furosemide 40 MG TABLET PO SCH (08:39)
[2019-06-16] MEDS: amLODIPine 5 MG TABLET PO SCH ×3 (08:39→08:49)
[2019-06-16] MEDS: Aspirin 81 MG TAB.CHEW PO SCH (08:39)
[2019-06-16] MEDS: Cholecalciferol (D-3) 1,000 UNIT (25MCG) TABLET PO SCH (08:39)
[2019-06-16] MEDS: carvediloL 6.25 MG TABLET PO SCH ×2 (08:39→17:05)
[2019-06-16] MEDS: Sennosides/Docusate Sodium TABLET PO SCH ×2 (08:39→20:49)
[2019-06-16] MEDS: Budesonide/Formoterol 80/4.5 1 PUFF INH IH SCH ×2 (11:17→22:17)
[2019-06-16] MEDS: Tiotropium 18 MCG inhalation IH SCH (11:19)
[2019-06-16] MEDS: QUEtiapine Fumarate 25 MG TABLET PO SCH (20:49)
[2019-06-17] MEDS: FLUoxetine 20 MG CAPSULE PO SCH (08:58)
[2019-06-17] MEDS: Loratadine 10 MG TABLET PO SCH (08:58)
[2019-06-17] MEDS: Aspirin 81 MG TAB.CHEW PO SCH (08:58)
[2019-06-17] MEDS: Vitamin E 200 UNIT (90MG) CAPSULE PO SCH (08:58)
[2019-06-17] MEDS: carvediloL 6.25 MG TABLET PO SCH ×2 (08:58→16:32)
[2019-06-17] MEDS: Apixaban 5 MG TABLET PO SCH ×2 (08:58→21:01)
[2019-06-17] MEDS: Cholecalciferol (D-3) 1,000 UNIT (25MCG) TABLET PO SCH (08:59)
[2019-06-17] MEDS: *HR* Amiodarone 200 MG TABLET PO SCH (08:59)
[2019-06-17] MEDS: Magnesium Oxide 400 MG TABLET PO SCH ×2 (08:59→21:01)
[2019-06-17] MEDS: Sennosides/Docusate Sodium TABLET PO SCH ×2 (08:59→21:01)
[2019-06-17] MEDS: Nystatin POWDER 30 GM BOTTLE TP SCH ×2 (09:00→21:01)
[2019-06-17] MEDS: Fluconazole 100 MG TABLET PO SCH (09:00)
[2019-06-17] MEDS: Furosemide 40 MG TABLET PO SCH (09:00)
[2019-06-17] MEDS: Multivit/Ca/Min/Fe/FA 1 TAB TABLET PO SCH (09:00)
[2019-06-17] MEDS: amLODIPine 5 MG TABLET PO SCH (09:00)
[2019-06-17] MEDS: Budesonide/Formoterol 80/4.5 1 PUFF INH IH SCH ×2 (10:47→22:48)
[2019-06-17] MEDS: Tiotropium 18 MCG inhalation IH SCH (10:50)
[2019-06-17] MEDS: QUEtiapine Fumarate 25 MG TABLET PO SCH (21:01)
[2019-06-18] MEDS: Aspirin 81 MG TAB.CHEW PO SCH (07:50)
[2019-06-18] MEDS: Apixaban 5 MG TABLET PO SCH ×2 (07:50→21:56)
[2019-06-18] MEDS: Vitamin E 200 UNIT (90MG) CAPSULE PO SCH (07:50)
[2019-06-18] MEDS: Sennosides/Docusate Sodium TABLET PO SCH ×2 (07:50→21:56)
[2019-06-18] MEDS: carvediloL 6.25 MG TABLET PO SCH ×2 (07:50→18:15)
[2019-06-18] MEDS: Multivit/Ca/Min/Fe/FA 1 TAB TABLET PO SCH (07:50)
[2019-06-18] MEDS: *HR* Amiodarone 200 MG TABLET PO SCH (07:50)
[2019-06-18] MEDS: Furosemide 40 MG TABLET PO SCH (07:50)
[2019-06-18] MEDS: FLUoxetine 20 MG CAPSULE PO SCH (07:50)
[2019-06-18] MEDS: amLODIPine 5 MG TABLET PO SCH (07:50)
[2019-06-18] MEDS: Cholecalciferol (D-3) 1,000 UNIT (25MCG) TABLET PO SCH (07:50)
[2019-06-18] MEDS: Magnesium Oxide 400 MG TABLET PO SCH ×2 (07:51→21:56)
[2019-06-18] MEDS: Nystatin POWDER 30 GM BOTTLE TP SCH ×2 (07:51→21:57)
[2019-06-18] MEDS: Loratadine 10 MG TABLET PO SCH (07:51)
[2019-06-18] MEDS: Tiotropium 18 MCG inhalation IH SCH (09:49)
[2019-06-18] MEDS: Budesonide/Formoterol 80/4.5 1 PUFF INH IH SCH ×2 (09:49→21:37)
[2019-06-18] MEDS: QUEtiapine Fumarate 25 MG TABLET PO SCH (21:56)
[2019-06-19 06:45] VITALS: BP 149/56
[2019-06-19] MEDS: Multivit/Ca/Min/Fe/FA 1 TAB TABLET PO SCH (09:13)
[2019-06-19] MEDS: Vitamin E 200 UNIT (90MG) CAPSULE PO SCH (09:13)
[2019-06-19] MEDS: carvediloL 6.25 MG TABLET PO SCH (09:13)
[2019-06-19] MEDS: Magnesium Oxide 400 MG TABLET PO SCH (09:13)
[2019-06-19] MEDS: Loratadine 10 MG TABLET PO SCH (09:13)
[2019-06-19] MEDS: FLUoxetine 20 MG CAPSULE PO SCH (09:14)
[2019-06-19] MEDS: amLODIPine 5 MG TABLET PO SCH (09:14)
[2019-06-19] MEDS: Nystatin POWDER 30 GM BOTTLE TP SCH (09:14)
[2019-06-19] MEDS: Apixaban 5 MG TABLET PO SCH (09:14)
[2019-06-19] MEDS: Furosemide 40 MG TABLET PO SCH (09:14)
[2019-06-19] MEDS: Aspirin 81 MG TAB.CHEW PO SCH (09:14)
[2019-06-19] MEDS: Sennosides/Docusate Sodium TABLET PO SCH (09:14)
[2019-06-19] MEDS: Cholecalciferol (D-3) 1,000 UNIT (25MCG) TABLET PO SCH (09:14)
[2019-06-19] MEDS: *HR* Amiodarone 200 MG TABLET PO SCH (09:14)
[2019-06-19] MEDS: Budesonide/Formoterol 80/4.5 1 PUFF INH IH SCH (09:31)
[2019-06-19] MEDS: Tiotropium 18 MCG inhalation IH SCH (09:31)
== END 2019-06-19 14:15 | DRG 871 ==
LOC: INPPIK 17:37
PROVIDERS: ADMIT Family Medicine; ATTEND Family Medicine